=== PATIENT | female | born 1955 | race Two or more races ===

== ENCOUNTER 2022-02-28 08:13 | Outpatient (CLI) | payer OTHER | END 2022-02-28 08:21 | disposition home or self-care (01) | LOC: RAD 08:13 | PROVIDERS: ATTEND Physical Medicine & Rehabilitation | DX: M70.71 Other bursitis of hip, right hip (principal) ==

== ENCOUNTER 2024-11-05 12:45 | Emergency (ER) | payer OTHER ==
[~2024-11-05] VITALS: Ht 154.9 cm; Wt 62.1 kg
[2024-11-05] MEDS ORDERED: IRBESARTAN75 MG PO (13:11)
[2024-11-05] MEDS ORDERED: CLONIDINE HCL 0.1 MG TABLET PO STA (13:38)
[2024-11-05] MEDS ORDERED: CLONIDINE HCL 0.1 MG TABLET PO ONE (13:49)
== END 2024-11-05 16:29 | disposition home or self-care (01) ==
LOC: ER 12:47
DX: R51.9 Headache, unspecified (principal); I10 Essential (primary) hypertension